=== PATIENT | male | born 1940 | race Caucasian/White ===

== ENCOUNTER 2016-05-14 16:49 | Inpatient (IN) | payer OTHER ==
[~2016-05-14] VITALS: Ht 185.4 cm; Wt 80.3 kg
--- NOTE | ~2016-05-14 | P ---
[facility] [place] [address] PROCEDURE REPORT Name: CLEO ANGEL Room #: 449-I [facility] IN M.R.#: [id number] Admission: 05/14/16 Attend Phys: Roberto Forde MD Discharge: Date of : 42 Report #: [id number] THIS REPORT FOR: //name// CC: Cain Palencia DATE OF SERVICE: 05/15/2016 PROCEDURE: Fiberoptic bronchoscopy with microscopic-protected specimen brush of the right upper lobe, sent for quantitative cultures and bronchial lavage in the right lower lobe, sent for microbiologic and cytologic tests. INDICATIONS: Diffuse bronchiectasis with multiple nodular infiltrates, failing outpatient treatment with Levaquin. ASA classification class II. PROCEDURE NOTATION: After discussing risks and benefits of the planned procedure with the patient, he desired to proceed. After obtaining informed consent, he was brought to the ICU room 248, where he was placed on continuous cardiopulmonary monitoring and supplemental oxygen. He was then given 4% lidocaine nebulized to anesthetize the upper respiratory tract. Once accomplished, he was given conscious sedation, a total of 5 mg of Versed and 25 mcg of fentanyl were titrated during the procedure to provide adequate sedation. Please see nursing sedation log for more details. Once accomplished, the bronchoscope was passed through an oral biteblock until the vocal cords were visualized. Lidocaine 1% was instilled in the vocal cords to provide topical anesthesia. The vocal cords moved appropriately both before and after procedure. The bronchoscope was then passed in the trachea and 1% lidocaine was instilled in the tracheobronchial tree bilaterally to provide topical anesthesia. Once complete, airways were surveyed. FINDINGS: Mainstem, lobar, segmental and subsegmental bronchi were explored and appeared patent, with no significant disease. There was diffuse bronchiectasis noted with dilatation of the airways and there was extensive thick villatoro secretions noted throughout the airways. A protected specimen brush was obtained in the right upper lobe and sent for quantitative cultures. Once this was completed, bronchial lavage was performed in the right lower lobe and sent for microbiologic and cytologic testing. The patient tolerated well. No noted complications. IMPRESSION: Diffuse nodular infiltrate, severe bronchiectasis, status post bronchoscopy with bronchoalveolar lavage and microscopic brush as outlined above. [address] [address] PROCEDURE REPORT Name: CLEO ANGEL Room #: 449-I [facility] IN M.R.#: [id number] Admission: 05/14/16 Attend Phys: Roberto Forde MD Discharge: Date of : 42 Report #: [id number] PLAN: Await microbiologic and cytologic tests, antimicrobials per infectious disease and add percussive vest to current therapy for airway clearance. <ELECTRONICALLY SIGNED> By: Roberto Forde MD 05/19/16 1508 1212 1346 Roberto Forde MD /nt
--- NOTE | ~2016-05-14 | H ---
[facility] [place] [address] HISTORY AND PHYSICAL Name: CLEO ANGEL Room #: 449-I ADM IN M.R.#: [id number] Admission: 05/14/16 Attend Phys: Roberto Forde MD Discharge: Date of : 42 Report #: [id number] THIS REPORT FOR: //name// CC: LANDY Forde DATE OF SERVICE: 05/14/2016 CHIEF COMPLAINT: Cough and shortness of breath. HISTORY OF PRESENT ILLNESS: The patient is a pleasant 76-year-old male with a past pulmonary history significant for tobacco abuse, quitting over 20 years ago, underlying bronchiectasis and COPD, was referred to our office by Dr. Ramón Díaz for further evaluation of the above complaints. He had been having several symptoms of productive cough, increased yellow sputum over the last few months. No fevers, chills, or sweats. There has been some ongoing weight loss and overall general malaise and increasing dyspnea and intolerance to any activity. Recently had been placed on a course of Levaquin with some change in sputum color; however, after completing course of Levaquin had an increased sputum production. There has been no chest pain, no hemoptysis, remains on some low dose systemic steroids and noted some improvement with use of nebulized treatments. Cough is now productive of voluminous amounts of yellow sputum. 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 No noted mold in his home. No recent travel. No prior history of tuberculosis or exposures. ALLERGIES: None known. PAST MEDICAL HISTORY: 1. History of COPD. 2. Cervical radiculopathy. 3. Bronchiectasis, extrapulmonary nodules. 4. History of hypertension. PAST SURGICAL HISTORY: Includes tonsillectomy and adenoidectomy as a child. CURRENT MEDICATIONS: 1. Prednisone 5 mg daily. 2. ProAir p.r.n. 3. Symbicort twice daily. 4. DuoNeb daily. SOCIAL HISTORY: The patient is an ex-smoker, quitting about 20 years ago. No significant alcohol consumption at this time. [facility] [address] [place] [address] HISTORY AND PHYSICAL Name: CLEO ANGEL Room #: 449-I [facility] IN ..#: [id number] Admission: 05/14/16 Attend Phys: Roberto Forde MD Discharge: Date of : 42 Report #: [id number] FAMILY HISTORY: Significant for father at 50 from renal failure. Mother at 95, multiple early comorbidities. REVIEW OF SYSTEMS: CONSTITUTIONAL: No fevers, chills, or sweats. ENT: No upper respiratory congestion, rhinorrhea, or dysphagia. CARDIOVASCULAR: No chest pains or palpitations. GASTROINTESTINAL: No nausea, vomiting, diarrhea, constipation, or abdominal pain. GENITOURINARY: No dysuria, no frequency. INTEGUMENT: Denies any rash. MUSCULOSKELETAL: No joint pains or swelling and generally has a 25-pound weight loss. PHYSICAL EXAMINATION: VITAL SIGNS: Temperature 97.9, pulse 90, respiratory rate of 18, blood pressure 140/72, oxygen saturation 92% on 2 liters, saturates very quickly on ambulation requiring 5 liters nasal cannula. GENERAL: This is a thin elderly male, in no distress. HEENT: Clear oropharynx. No dental caries. Mallampati 1 airway. NECK: Supple, no lymphadenopathy. LUNGS: Diminished with prolonged expiratory phase, diffuse inspiratory and expiratory rhonchi heard throughout. CARDIOVASCULAR: Heart was regular. No murmurs noted. ABDOMEN: Soft, nontender, no masses. EXTREMITIES: Warm, 2+ pulses, no edema. INTEGUMENT: Without rash. LABORATORY DATA: CT scan of the chest done one week ago revealed diffuse worsening left-sided basilar nodules with some improvement in right basilar nodules, diffuse severe bronchiectasis, right greater than left, more lower lobe predominant also noted, diffuse nodular infiltrates also appreciated. IMPRESSION: 1. Acute on chronic hypoxemic respiratory failure with worsening hypoxemic respiratory failure, likely due to respiratory infection, favor admission for further workup and management if the patient becomes acutely severely decompensated. 2. Diffuse nodular pulmonary infiltrates consistent with persistent chronic infectious pneumonia with his bronchiectasis organisms such as methicillin-resistant Staph aureus and Pseudomonas as well as other atypical pathogens including AFB pathogens should be considered and evaluated for. They were sputum for cultures, bronchoscopy in a.m., hold antibiotics until after bronchoscopy complete. We will ask infectious disease to assist with antibiotic management and culture evaluations. [address] [address] HISTORY AND PHYSICAL Name: CLEO ANGEL Room #: 449-I ADM IN M.R.#: [id number] Admission: 05/14/16 Attend Phys: Roberto Forde MD Discharge: Date of : 42 Report #: [id number] 3. Chronic obstructive pulmonary disease with acute exacerbation. We will add low dose systemic steroids and continue with DuoNebs q. 4 hours, add a flutter valve for airway clearance. 4. Severe diffuse bronchiectasis, lower lobe predominant, unclear underlying etiology. 5. History of hypertension. PLAN: As outlined above. Discussed with the patient and daughter by phone, they understand and agreed to proceed with current plan. <ELECTRONICALLY SIGNED> By: Roberto Forde MD 05/19/16 1508 1847 1918 Roberto Forde MD /nt
--- NOTE | ~2016-05-14 | HC ---
[facility] [place] [address] CONSULTATION Name: CLEO ANGEL Room #: 449-I ADM IN M.R.#: [id number] Admission: 05/14/16 Attend Phys: Roberto Forde MD Discharge: Date of : 42 Report #: [id number] THIS REPORT FOR: //name// CC: Baldo Forde REASON FOR CONSULTATION: I was asked to evaluate concerning pneumonia. HISTORY OF PRESENT ILLNESS: The patient is a 76-year-old with progressive symptom complex of shortness of breath, dyspnea on exertion, cough with purulent sputum production. He has noticed this over the last 2 months. He has had one round of oral antibiotics including Levaquin, placed on prednisone and has shown minimal improvement, although his sputum has lightened up significantly. the last 2 weeks, he has been placed on oxygen and is now on 2 liters of oxygen per nasal cannula. He denies any fever or chills, although he has had occasional night sweat. He has had no hemoptysis. He denies any pleuritic chest pain. He has lost 30 pounds of weight. No nausea, vomiting, or diarrhea. No history of aspiration. Denies HIV risk factors. 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 No tuberculosis exposure. He is a past smoker. ALLERGIES: None. MEDICATIONS: Included 5 mg of prednisone, Symbicort, ProAir, DuoNeb and oxygen at 2 liters per nasal cannula. PAST MEDICAL HISTORY: He has had previous pneumonia several years ago, cervical radiculopathy, hypertension, fibula fracture, partial left footdrop, and elevated PSA. FAMILY HISTORY: Noncontributory. SOCIAL HISTORY: As noted above with no additions. REVIEW OF SYSTEMS: In addition to the above, no rashes adenopathy, dysuria, or frequency. PHYSICAL EXAMINATION: VITAL SIGNS: Afebrile, hemodynamically stable. GENERAL: He is alert, cooperative, and pleasant, in no acute distress, is sitting up in his chair on 2 liters of oxygen per nasal cannula. SKIN: Unremarkable. LYMPH: Unremarkable. No peripheral edema. HEENT: Unremarkable. NECK: Supple. LUNGS: Decreased breath sounds bilaterally with no consolidation. [facility] [address] [place] [address] CONSULTATION Name: CLEO ANGEL Room #: 449-I ADM IN [facility].#: [id number] Admission: 05/14/16 Attend Phys: Roberto Forde MD Discharge: Date of : 42 Report #: [id number] HEART: Regular without murmur. ABDOMEN: Soft, nontender, no hepatosplenomegaly or mass. LABORATORY STUDIES: CT scan of the chest was performed in the outpatient clinic. I have not seen the results yet. By report, diffuse left side basilar nodules with diffuse severe bronchiectasis, right greater than left and diffuse nodular infiltrates. Sodium 136, potassium 3.9, and creatinine 1.1. Liver function test normal. Hemoglobin 12, white count 12.6, and platelet count 316,000. IMPRESSION: A 76-year-old with diffuse bronchiectasis and exacerbation of such along with pulmonary nodules. Concerned about the amount of weight loss and debility that has been fairly rapid in onset. We would recommend bronchoscopy to screen for not only bacteria, but also AFB and fungal infections. Also, screen for underlying cancer. After bronchoscopy, we will begin antibiotic therapy and adjust from there. <ELECTRONICALLY SIGNED> By: Cain Isabel MD 05/18/16 1129 1041 1132 Cain Isabel MD /nt
--- NOTE | ~2016-05-14 | HC ---
[facility] [place] [address] CONSULTATION Name: CLEO ANGEL Room #: 449-I ADM IN M.R.#: [id number] Admission: 05/14/16 Attend Phys: Roberto Forde MD Discharge: Date of : 42 Report #: [id number] THIS REPORT FOR: //name// CC: Baldo Forde DATE OF SERVICE: 05/15/2016 LOCATION: The patient is in room 449. REFERRING PHYSICIAN: Roberto Forde MD HISTORY OF PRESENT ILLNESS: This 76-year-old white male is admitted by Dr. Forde because of worsening respiratory failure, dyspnea, sputum production, and need for oxygen. The patient has a past history of COPD and bronchiectasis, was seen in my office on 05/05/2016 after having finished a week of Levaquin and increased prednisone when he continued he show worsening hypoxia with O2 sats dropping 85% on room air when he would walk. He was set up for oxygen at home, which he has been wearing, but his condition continued to worsen. He has been coughing up large amounts of sputum and getting more short of breath. I had referred him to Dr. 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 PAST MEDICAL HISTORY: Elevated PSA without biopsy per patient request, previous pneumonia, cervical radiculopathy from degenerative disk disease, hypertension, fractured right fibula, partial left footdrop, questionable pulmonary nodules and tonsillectomy. MEDICATIONS ON ADMISSION: Oxygen at 3 liters, prednisone 5 mg daily, ProAir 2 puffs q.i.d., Symbicort 160/4.5 two puffs b.i.d. and DuoNeb solution via nebulizer q.i.d. ALLERGIES: None. SOCIAL HISTORY: The patient lives on a farm. 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 He has children out of town, but he does not want to move to their city. REVIEW OF SYSTEMS: He denies loss of appetite, weight loss, fever, chills, sweats, hemoptysis or dysuria. PHYSICAL EXAMINATION: GENERAL: Pleasant, slightly cachectic appearing white male who recognized me immediately. VITAL SIGNS: BP 90/42, pulse 74, respirations 18, temperature afebrile. [facility] [address] [place] [address] CONSULTATION Name: CLEO ANGEL Room #: 449-I [facility] IN M.R.#: [id number] Admission: 05/14/16 Attend Phys: Roberto Forde MD Discharge: Date of : 42 Report #: [id number] HEAD: No rash or trauma. EARS, NOSE AND THROAT: No thrush or oral lesions. EYES: No icterus. NECK: Supple. LUNGS: Cough is bronchitic. Lungs reveal diffuse rhonchi and soft wheezes. HEART: Rhythm regular, without gallop. ABDOMEN: Soft, without masses or organomegaly. EXTREMITIES: Legs, no edema or cyanosis. NEUROLOGIC: He is alert and well oriented. Ambulates independently. LABORATORY DATA: Hemoglobin 12 grams, white count 12,600. Electrolytes normal. BUN 18, creatinine 1.1, estimated GFR 65, blood sugar 140. Liver enzymes normal. Albumin low at 2.5, protein slightly high at 8.3. Recent CAT scan showed bronchiectasis and diffuse basilar nodules. Sputum sample was not adequate for sending yet. IMPRESSION: 1. Hypoxic respiratory failure secondary to bronchiectasis, chronic obstructive pulmonary disease, and possible infection. 2. Cervical radiculopathy. 3. History of hypertension. 4. History of elevated PSA. 5. Moderate protein-calorie malnutrition. 6. Elevated serum proteins, probably secondary to infection. RECOMMENDATIONS: Dr. Forde has started an aggressive pulmonary program including bronchoscopy for adequate cultures and Infectious Disease consultation. Would encourage adequate diet, possibly Ensure supplement. Thank you for the opportunity to see this patient in consultation. <ELECTRONICALLY SIGNED> By: Baldo Díaz DO 05/18/16 0739 0733 0935 Baldo Díaz DO /nt
--- NOTE | ~2016-05-14 | CNG ---
[facility] [place] [address] CYTO-NONGYN REPORT PROCEDURE Name: BUTCH BRANDON Room #: 449-I ADM IN M.R.#: [id number] Admission: 05/14/16 Date of : 44 Discharge: Report #: [id number] Path Case #: [id number] CYTOPATHOLOGY REPORT COLLECTION DATE: 05/15/2016 RECEIVED DATE: 05/18/2016 SUBMITTING PHYS: Dr. Cain Isabel OTHER PHYS: Dr. Roberto Díaz CLINICAL HISTORY: Shortness of air, COPD, Pneumonia. SPECIMEN(S) RECEIVED: A.Needle aspiration, transbronchial B.Bronchoalveolar lavage, NOS * * * * * * * * * * * * FINAL DIAGNOSIS: A. Needle aspiration, transbronchial: NEGATIVE FOR MALIGNANT CELLS. Numerous acute inflammatory cells present. B. Bronchoalveolar lavage, NOS: NEGATIVE FOR MALIGNANT CELLS. Numerous acute inflammatory cells, few bronchial epithelial cells, and few pulmonary macrophages present. Properly controlled silver stain is negative for fungal elements and negative for Pneumocystis organisms. PATHOLOGIST: Indigo Varma M.D. REPORT ELECTRONICALLY SIGNED BY: Indigo Varma M.D. DATE/TIME: 05/19/2016 13:00 * * * * * * * * * * * * GROSS PATHOLOGY: A. Needle aspiration, transbronchial: The specimen is labeled "Butch Brandon" and consists of a brush tip in fixative. One ThinPrep slide was prepared from this material. B. Bronchoalveolar lavage, NOS: The specimen is submitted fixed, labeled "Butch Brandon". Received by the Cytology Department is four mL of cloudy yellow fluid. One ThinPrep slide was prepared for pap stain. One ThinPrep slide was prepared for silver stain. (clt 05.18.2016) MUSIC WRITER(S): REYNOLD Holman(ASCP) INITIAL CPT CODE(S): A; 67177 B; 92587, 33063 Professional services performed by [facility] at [facility] [address] [place] [address] CYTO-NONGYN REPORT PROCEDURE Name: STANLEYBUTCH Room #: 449-I ADM IN M.R.#: [id number] Admission: 05/14/16 Date of : 42 Discharge: Report #: [id number] Path Case #: [id number] , [place] [address] Technical services performed by [facility] at [address] [place] [address], [address], [place] [address]. [address] [place] [address] PHONE: [phone] DIRECTOR: Masoud Guillen M.D. * * * END OF REPORT * * *
[2016-05-14] MEDS ORDERED: PREDNISONE 5 MG5 M1 PO (18:46)
[2016-05-14 18:55] VITALS: BP 106/53
[2016-05-14 20:19] LABS: HEMATOCRIT 37.3 % (42.0-52.0); MCH 27.8 pg (26.0-34.0); MCHC 32.3 % (28.0-37.0); MCV 86.2 fL (80.0-100.0); RBC 4.32 mil/uL (4.50-6.00); RDW 14.5 % (10.5-14.5); WBC 12.6 thou/uL (4.0-11.0)
[2016-05-14 20:32] LABS: ALBUMIN 2.5 g/dL (3.4-5.0); CALCIUM 8.9 mg/dL (8.5-10.1); CREATININE 1.1 mg/dL (0.6-1.3); POTASSIUM 3.9 mmol/L (3.5-5.1); TOTAL BILIRUBIN 0.3 mg/dL (<0.1-1.0); TOTAL PROTEIN 8.3 g/dL (6.4-8.2)
[2016-05-15 04:00] VITALS: BP 98/42
[2016-05-15 07:29] VITALS: BP 96/52
[2016-05-15 12:50] VITALS: BP 94/43
[2016-05-15 15:16] VITALS: BP 99/49
[2016-05-15 15:26] LABS: ESR (SEDRATE) 132 mm/hr (0-20)
[2016-05-15 19:03] VITALS: BP 113/53
[2016-05-16 02:53] VITALS: BP 112/62
[2016-05-16 04:11] LABS: IgA 636 mg/dL (61-437); IgG 1749 mg/dL (700-1600); IgM 60 mg/dL (15-143)
[2016-05-16 05:13] LABS: HIV ANTIBODY Non Reactive (Non Reactive)
[2016-05-16 07:51] VITALS: BP 112/64
[2016-05-16 11:31] VITALS: BP 146/71
[2016-05-16 16:20] VITALS: BP 126/62
[2016-05-16 19:07] VITALS: BP 117/64
[2016-05-17 05:07] VITALS: BP 113/62
[2016-05-17 07:51] VITALS: BP 114/54
[2016-05-17 11:49] VITALS: BP 130/69
[2016-05-17 15:54] VITALS: BP 133/73
[2016-05-17 19:15] VITALS: BP 134/66
[2016-05-18 03:37] VITALS: BP 116/67
[2016-05-18 08:00] VITALS: BP 122/69
[2016-05-18 11:30] VITALS: BP 115/65
[2016-05-18 14:52] LABS: NIL (NEGATIVE) CONTROL SPOT CT 0; PANEL A SPOT CT 0; PANEL B SPOT CT 1; POSITIVE CONTROL SPOT COUNT > 20; T-SPOT.TB Negative
[2016-05-18 16:00] VITALS: BP 115/64
[2016-05-18 18:06] LABS: HISTOPLASMA-IMMUNODIFF Negative (Neg:<1:1)
[2016-05-18 19:15] VITALS: BP 113/64
[2016-05-19 05:07] VITALS: BP 116/66
[2016-05-19 07:26] VITALS: BP 128/87
[2016-05-19 11:49] VITALS: BP 129/79
[2016-05-19 12:27] VITALS: BP 129/79
[2016-05-19 16:08] LABS: ASPERGILLUS FLAVUS-ID Negative (Neg:<1:1); ASPERGILLUS FUMIGATUS-ID Negative (Neg:<1:1); ASPERGILLUS NIGER-ID Negative (Neg:<1:1)
[2016-05-27 18:11] LABS: BLASTOMYCES-IMMUNODIFF Negative (Neg:<1:1)
[2016-05-30 19:06] LABS: COCCIDIOIDES-IMMUNODIFF Negative (Neg:<1:1)
== END 2016-05-19 15:33 | disposition home or self-care (01) | DRG 177 ==
LOC: 4W 16:49
PROVIDERS: Internal Medicine Pulmonary Disease; Specialist
PROC: 0BB48ZX Excision of Right Upper Lobe Bronchus, Via Natural or Artificial Opening Endoscopic, Diagnostic (ICD-10-PCS; principal; 2016-05-15)
PROC: 0B968ZX Drainage of Right Lower Lobe Bronchus, Via Natural or Artificial Opening Endoscopic, Diagnostic (ICD-10-PCS; principal; 2016-05-15)
DX: J15.1 Pneumonia due to Pseudomonas (principal); J96.21 Acute and chronic respiratory failure with hypoxia; E44.0 Moderate protein-calorie malnutrition; J44.1 Chronic obstructive pulmonary disease with (acute) exacerbation; J47.1 Bronchiectasis with (acute) exacerbation; R33.9 Retention of urine, unspecified; M50.10 Cervical disc disorder with radiculopathy, unspecified cervical region; I10 Essential (primary) hypertension; Z87.81 Personal history of (healed) traumatic fracture; Z98.890 Other specified postprocedural states; Z68.23 Body mass index [BMI] 23.0-23.9, adult
CPT/HCPCS: 10045

== ENCOUNTER → 2016-08-05 | Outpatient (CLI) | payer OTHER ==
[~2016-08-05] MED LIST: PREDNISONE 5 MG5 M1 PO
== END ==
LOC: RAD 09:37
DX: J47.9 Bronchiectasis, uncomplicated (principal)

== ENCOUNTER → 2017-11-18 | Outpatient (CLI) | payer OTHER | LOC: RAD 10:25 | DX: J47.9 Bronchiectasis, uncomplicated (principal); I10 Essential (primary) hypertension ==

== ENCOUNTER 2018-01-14 23:14 | Inpatient (IN) | payer OTHER ==
[~2018-01-14] VITALS: Ht 185.4 cm; Wt 70.3 kg
--- NOTE | ~2018-01-14 | EKG ---
[address] [address] ELECTROCARDIOGRAM REPORT Name: CLEO ANGEL Room #: 352-P [facility] IN M.R.#: [id number] Admission: 01/15/18 Attend Phys: Baldo Díaz DO Discharge: Date of : 42 Report #: [id number] THIS REPORT FOR: //name// [facility] ED Test Date: 2018-01-14 Test Time: 23:50:03 Pat Name: CLEO ANGEL Department: Room: Gender: M [employer] Director: TK : 1940 Requested By: Cindy Moya Order Number: [id number] MD: Luc Catherine Measurements Intervals [place] Rate: 104 P: 84 MO: 160 QRS: 66 QRSD: 96 T: 60 QT: 317 QTc: 417 Interpretive Statements Sinus tachycardia No previous ECG available for comparison Electronically Signed On 01-17-2018 17:24:58 CDT by Luc Catherine [email or web address] <ELECTRONICALLY SIGNED> By: Luc Catherine MD 01/17/18 1724 2350 2350 Luc Catherine MD /MELODIE
--- NOTE | ~2018-01-14 | D ---
[facility] [place] [address] DISCHARGE SUMMARY Name: CLEO ANGEL Room #: 352-P [facility] IN ..#: [id number] Admission: 01/15/18 Attend Phys: Baldo Díaz DO Discharge: 01/20/18 Date of : 42 Report #: [id number] THIS REPORT FOR: //name// CC: Baldo Lee MD DATE OF SERVICE: 01/20/2018 This 77-year-old white male was admitted with shortness of breath, coughing and wheezing, progressive over several days at home. His past history include chronic obstructive lung disease, oxygen dependent; bronchiectasis; hypertension; previous pulmonary nodules; cervical degenerative disk disease with radiculopathy. 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 The patient had lost at least 20 pounds. In March of last year, he weighed 176. HOSPITAL COURSE: Initial physical revealed a dyspneic, tachypneic white male, using pursed lip breathing. Cardiac exam revealed rhythm was initially regular then became irregular. His lungs revealed scattered expiratory wheezes. The abdomen was soft and nontender without masses. Extremities had no edema or cyanosis. He was wearing 6 liters of oxygen as at home. Initial EKG showed atrial fibrillation. Echocardiogram revealed an LVEF ____% mild diastolic dysfunction and pulmonary artery pressure elevated at 65. No significant valvular disease was seen. Initial chest x-ray showed consolidating pneumonia in the right lower lung with small right pleural effusion. The patient was seen in consult by Dr. Lozoya of Pulmonary and Dr. Lee of Cardiology. He was placed on full dose Lovenox and started on Cardizem for rate control. He received IV steroids and IV antibiotics. CAT scan of the chest, abdomen and pelvis because of chronic weight loss revealed enlarged prostate with mass effect, diffuse emphysema, mass-like infiltrates in bilateral lung bases and right middle lobe with extensive bronchiectasis throughout both lung tellez. CAT scan was compared to a CAT scan from 2017 with findings that the nodular opacities within the right lung base had increased and the nodular opacity in the left lower lobe was new. Sputum culture grew out no pathogens. Urine antigens for legionella and pneumococcus were negative. Multiple blood studies were obtained. His final hemoglobin is 10.7, white count 15,000. Sodium low at 130, potassium 4.7, CO2 39, BUN 26, creatinine 0.9, blood sugar 90, calcium 8.9, albumin 2.3. PSA was elevated at 13. Thyroid function was normal. The patient did improve somewhat, but still required 6 liters of oxygen, had continued wheezing. He was breathless when talking, but was able to ambulate slowly in the halls. Bowel and bladder function was stable. On 01/20/2018, he was clinically stable for transfer to [facility]p at [facility] on Trelegy one puff daily; DuoNeb treatments q.i.d. and p.r.n. at night; oxygen 6 liters with taper if possible; prednisone 40 mg daily for 3 days, then [address] [address] DISCHARGE SUMMARY Name: STANLEYCLEO Room #: 352-P [facility] IN [facility].#: [id number] Admission: 01/15/18 Attend Phys: Baldo Díaz, Discharge: 01/20/18 Date of : 44 Report #: [id number] daily for 3 days, then 10 mg daily; cefuroxime 500 mg b.i.d. for another 5 days; Mucinex 1200 mg b.i.d.; Cardizem CD 180 mg daily; Flonase 1 spray each nostril b.i.d.; Tylenol grains 10 q. 4 hours p.r.n. pain and a regular diet. He remained in atrial fibrillation with rate controlled. Concern for malignancy is still present, possibly in the lung. Plan is to repeat his CAT scan in 6 weeks. Overall, prognosis is very guarded. He does have a living will and states he requests DNR status and no heroics or feeding tube or life support measures. FINAL DIAGNOSES: 1. Community-acquired pneumonia. 2. Severe protein-calorie malnutrition with weight loss and cachexia. 3. Chronic obstructive pulmonary disease with diffuse bronchiectasis. 4. Atrial fibrillation. 5. Hypertension. 6. History of cervical degenerative disk disease. 7. Hyponatremia. 8. Chronic anemia. <ELECTRONICALLY SIGNED> By: Baldo Díaz DO 01/29/18 0713 0903 1137 Baldo Díaz DO /nt
--- NOTE | ~2018-01-14 | 2DMMODE ---
[facility] [address] [place] [address] 2 D/M-MODE ECHOCARDIOGRAM Name: CLEO ANGEL Room #: 352-P [facility] IN ..#: [id number] Admission: 01/15/18 Attend Phys: Bella Dunn Discharge: Date of : 44 Date of Service: 01/15/18 [facility] Report #: [id number] THIS REPORT FOR: //name// APPROVED REPORT Study performed: 01/15/2018 08:49:10 EXAM: Comprehensive 2D, Doppler, and color-flow Echocardiogram Patient Location: Bedside Room #: [facility] Status: routine BSA: 1.93 HR: 71 bpm BP: 116/68 mmHg Other Information Study Quality: Adequate Technically limited study due to lung disease, no parasternal short axis images due to low window. Indications COPD Hypertension/HDD SOA 2D Dimensions RVDd: 41.75 mm IVSd: 9.79 (7-11mm) LVOT Diam: 20.97 (18-24mm) LVDd: 42.64 mm PWd: 8.52 (7-11mm) LVDs: 26.91 (25-40mm) Aortic Root: 31.36 mm IVC: 23.00 mm Volumes Left Atrial Volume (Systole) Single Plane 4CH: 29.35 mL Single Plane 2CH: 25.65 mL LA ESV Index: 17.00 mL/m2 Aortic Valve AoV Peak Cas.: 1.03 m/s AO Peak Gr.: 4.25 mmHg LVOT Max P.23 mmHg LVOT Max V: 1.03 m/s SAMEER Vmax: 3.44 cm2 [facility] [address] [place] [address] 2 D/M-MODE ECHOCARDIOGRAM Name: MEGANRadhaCLEO Cris Room #: 352-P [facility] IN [facility]#: [id number] Admission: 01/15/18 Attend Phys: Bella Dunn Discharge: Date of : 44 Date of Service: 01/15/18 [facility] Report #: [id number] Mitral Valve E/A Ratio: 0.6 MV Decel. Time: 227.24 ms MV E Max Cas.: 0.64 m/s MV A Cas.: 1.09 m/s MV PHT: 65.90 ms IVRT: 83.04 ms Pulmonary Valve PV Peak Cas.: 1.12 m/s PV Peak Gr.: 4.98 mmHg Tricuspid Valve TR Peak Cas.: 3.70 m/s RAP Estimate: 10.00 mmHg TR Peak Gr.: 54.68 mmHg PA Pressure: 65.00 mmHg Left Ventricle The left ventricle is normal size. There is normal left ventricular wall thickness. The left ventricular systolic function is normal. The left ventricular ejection fraction is within the normal range. LVEF is 60-65%. Mild diastolic dysfunction is present (impaired relaxation pattern). Right Ventricle Right ventricle is at the upper limits of normal. The right ventricular systolic function is normal. Atria The left atrium size is normal. The right atrium size is normal. Aortic Valve The aortic valve is normal in structure. No aortic regurgitation is present. There is no aortic valvular stenosis. Mitral Valve The mitral valve is normal in structure. Trace mitral regurgitation. No evidence of mitral valve stenosis. Tricuspid Valve The tricuspid valve is normal in structure. Mild tricuspid regurgitation. PAP is estimated at 65 mmHg. Pulmonic Valve Pulmonic valve is not well visualized. [facility] [place] [address] 2 D/M-MODE ECHOCARDIOGRAM Name: CLEO ANGEL Room #: 352-P ADM IN .R.#: [id number] Admission: 01/15/18 Attend Phys: Bella Dunn Discharge: Date of : 44 Date of Service: 01/15/18 [facility] Report #: [id number] Great Vessels The aortic root is normal in size. IVC is dilated and collapses >50% with inspiration. Pericardium There is no pericardial effusion. <Conclusion> The left ventricle is normal size. LVEF is 60-65%. Mild diastolic dysfunction is present (impaired relaxation pattern). Right ventricle is at the upper limits of normal. The left atrium size is normal. The aortic valve is normal in structure. Trace mitral regurgitation. Mild tricuspid regurgitation. PAP is estimated at 65 mmHg. The aortic root is normal in size. There is no pericardial effusion. <ELECTRONICALLY SIGNED> By: Francisco Bennett MD, FACC 01/15/18 1037 1037 1037 Francisco Bennett MD, FACC /INF
--- NOTE | ~2018-01-14 | EKG ---
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
--- NOTE | ~2018-01-14 | H ---
[facility] [place] [address] HISTORY AND PHYSICAL Name: CLEO ANGEL Room #: 352-P ADM IN M.R.#: [id number] Admission: 01/15/18 Attend Phys: Baldo Díaz DO Discharge: Date of : 44 Report #: [id number] THIS REPORT FOR: //name// CC: Baldo Díaz PRIMARY CARE PHYSICIAN: Baldo Díaz DO CHIEF COMPLAINT: Shortness of breath. HISTORY OF PRESENT ILLNESS: This is a pleasant male with long history of COPD, bronchiectasis, oxygen dependent. It is noted that his oxygen concentrator has had difficulties. The patient has noted increasing shortness of breath with coughing and wheezing. This has been most evident over the last 1-2 days. There have been no fevers or chills, headache, visual changes, hearing changes, sore throat, epistaxis, chest pain, chest pressure, palpitations, near syncope, abdominal pain, nausea, vomiting, diarrhea, constipation, dysuria, joint swelling, skin rash, depression, anxiety or confusion. The patient came in the emergency department and required BiPAP. PAST MEDICAL HISTORY: 1. Tonsillectomy. 2. COPD. 3. Cervical radiculopathy. 4. Bronchiectasis. 5. Hypertension. 6. History of pulmonary nodules. SOCIAL HISTORY: The patient quit smoking 20 years ago. No significant alcohol consumption. MEDICATIONS: DuoNeb. FAMILY HISTORY: Father of renal failure, mother multiple medical issues. PHYSICAL EXAMINATION: GENERAL: Pleasant male with mild respiratory distress. VITAL SIGNS: Temperature is 36.3, heart rate 85, respiratory rate 24, blood pressure 116/68, oxygen saturation 98%. HEENT: Conjunctivae pink. Nares clear. Pharynx clear. NECK: Supple, no lymphadenopathy. LUNGS: With moderate bilateral wheezing, few rhonchi. HEART: Regular rhythm. S1, S2. ABDOMEN: Soft, nontender, nondistended. EXTREMITIES: No edema. Good peripheral pulses. No joint swelling. SKIN: No skin rash. PSYCHIATRY: Affect is normal. [address] [address] HISTORY AND PHYSICAL Name: MEGANRadhaCLEO Room #: 352-P [facility] IN ..#: [id number] Admission: 01/15/18 Attend Phys: Baldo Díaz DO Discharge: Date of : 44 Report #: [id number] DATA: White blood cell count 22.7, hemoglobin 11.7, 86% neutrophils, platelet count 288. PT, PTT normal. BUN 30, creatinine 1.5, bicarbonate 37. Troponin was normal. TSH 1.85. Arterial blood gas pH 7.419, pCO2 of 54, pO2 of 99.8 on 5 L of nasal cannula. IMPRESSION: 1. Acute shortness of breath, likely acute exacerbation of chronic obstructive pulmonary disease with underlying bronchiectasis. No chest radiograph noted at this time. No results at this time. Reportedly from the emergency department, a chest radiograph showed no acute infiltrates. 2. Respiratory alkalosis, chronic. PLAN: Bronchodilators, antibiotics, glucocorticoids, echocardiogram. DVT prophylaxis, oxygen as needed. Consult pulmonary medicine. <ELECTRONICALLY SIGNED> By: Devon Hurley MD 01/16/18 0719 0609 0638 Devon Hurley MD /nt
--- NOTE | ~2018-01-14 | HC ---
[facility] [place] [address] CONSULTATION Name: CLEO ANGEL Room #: 352-P [facility] IN M.R.#: [id number] Admission: 01/15/18 Attend Phys: Baldo Díaz DO Discharge: Date of : 44 Report #: [id number] THIS REPORT FOR: //name// CC: Baldo Díaz DATE OF SERVICE: 01/15/2018 PRIMARY CARE PHYSICIAN: Dr. Baldo Díaz. REFERRING PHYSICIAN: Dr. Devon Hurley. REASON FOR REFERRAL: Dyspnea. HISTORY OF PRESENT ILLNESS: The patient is a 77-year-old white male with COPD who presented to Emergency Room with progressive dyspnea. A pulmonary consultation was requested. The patient is normally followed longitudinally by Dr. Forde in the office. His baseline FEV1 measured 0.72 or 22% predicted, FVC measuring 1.89 or 45% predicted, FEV1/FVC ratio of 38%. The study was done in 11/2016. He was last seen in the office in 11/2017. He is normally on ProAir, DuoNeb q.i.d. and p.r.n., Actifed. The patient also has been on oxygen for the past 2 years. He was in his usual state of health until about several days ago he noticed that his oxygen concentrator started to malfunction. He thinks that he was not getting any oxygen. He is normally on 4 liters of O2. For the past few days he has noticed increasing dyspnea, bronchospasm. Otherwise, he denies any recent febrile illness, sore throat, productive cough, hemoptysis. He denies any recent nausea, vomiting, diarrhea. PAST MEDICAL HISTORY: Notable for allergic rhinitis, bronchiectasis by CT chest, status post bronchoscopy in 2017, cervical radiculopathy, COPD, very severe impairment of baseline FEV1 of 0.72 liters or 22% predicted, chronic O2 at 4 liters, foot drop, fibular fracture, hypotension, past history of pneumonia, and spondylosis. PAST SURGICAL HISTORY: Include tonsillectomy, adenoidectomy. ALLERGIES: None to medications. SOCIAL HISTORY: The patient had smoked about a pack a day for 20 years, quit in 1979. He denies any alcohol use. [facility] [address] [address] CONSULTATION Name: CLEO ANGEL Room #: 352-P [facility] IN [facility]#: [id number] Admission: 01/15/18 Attend Phys: Baldo Díaz, Discharge: Date of : 44 Report #: [id number] REVIEW OF SYSTEMS: As mentioned above, otherwise 10-point system review negative. The patient has lost approximately 50 pounds over the last few years. He states that his appetite really has not changed. PHYSICAL EXAMINATION: GENERAL: He is awake, alert. He appears moderately dyspneic. VITAL SIGNS: Temperature is 97.6 degrees Fahrenheit, pulse is 70, respiratory rate is 18, blood pressure 111/71 mmHg, saturation 98%. HEENT: Normocephalic, atraumatic. NECK: Supple, without any lymphadenopathy or thyromegaly. CHEST: Breath sounds are decreased bilaterally, mild expiratory wheezes. No rales. CARDIOVASCULAR: Normal S1, S2. There are no murmurs or gallop. There is no JVD, no carotid bruit. Pulses are 2+/4+ bilaterally. ABDOMEN: Soft, nontender, no organomegaly or masses felt. GENITOURINARY: Deferred. RECTAL: Deferred. EXTREMITIES: There is no edema, cyanosis or clubbing. LABORATORY DATA: Chest x-ray shows hyperexpanded lung tellez, increased infiltrates in the right lower lung field, diaphragms are flattened, chronic infiltrates also noted when compared to prior chest x-ray of 2017. Electrolytes: Sodium 134, potassium 4.6, chloride 93, CO2 of 37, BUN is 30, and creatinine is 1.7. WBC 22,700, hemoglobin 11.7, platelets are normal, no evidence of bandemia. Arterial blood gas revealed pH 7.41, pCO2 of 54, pO2 of 99 on 5 liters of O2. IMPRESSION: 1. Exacerbation of chronic obstructive pulmonary disease/bronchiectasis, very severe impairment, baseline FEV1 of 0.72 liters, 22% predicted. 2. Acute on chronic hypercapnic hypoxic respiratory failure. He is normally on 4 liters of O2. 3. Recent weight loss of about 50 pounds over the last few years, suspect this may be related to severe pulmonary impairment, otherwise known as pulmonary cachexia syndrome. 4. Increased right lower lobe infiltrates, possible pneumonia. He has had bronchoscopy in the past. The patient does not have a past history of chronic bacterial colonization. 5. Renal insufficiency, this appears to be acute kidney injury, previous creatinine had been normal. 6. Episodic tachycardia, likely paroxysmal atrial tachycardia due to severe pulmonary impairment and hypoxia. RECOMMENDATION: I would agree with current plans, bronchodilators, corticosteroids, and broad spectrum antibiotics. Dose of the prednisone can be left at 40 mg once a day based on most studies. The patient does have trouble [facility] [address] [place] [address] CONSULTATION Name: CLEO ANGEL Room #: 352-P [facility] IN .R.#: [id number] Admission: 01/15/18 Attend Phys: Baldo Díaz DO Discharge: Date of : 44 Report #: [id number] with paroxysmal tachycardia, suspect paroxysmal atrial tachycardia. We will try to switch albuterol to Xopenex. Continue nebulized ipratropium. DVT and GI prophylaxis will be indicated. With his history of recent weight loss, if the patient has not undergone workup for unexplained weight loss, this will be recommended. This can be done as an outpatient. If workup has been so far negative, it is likely related to severe pulmonary impairment, otherwise known as pulmonary cachexia syndrome. Nutritional supplementation is recommended. Previous studies looking at appetite stimulant has not been highly successful in increasing caloric intake. Nutritional supplements such as Ensure or PulmoCare or [place] instant breakfast will be an option. Thank you for this consultation. <ELECTRONICALLY SIGNED> By: Vahe Lagunas MD 01/16/18 1353 1416 193 Vahe Lagunas MD /nt
[2018-01-14 23:15] VITALS: BP 125/77
[2018-01-14 23:34] LABS: BE(vivo) 8.2 mmol/L (-2 to +3); HCO3 34.2 mmol/L (22.0-26.0); PCO2 54.1 mmHg (35.0-45.0); PO2 99.8 mmHg (80.0-100.0); pH 7.419 (7.360-7.450); sO2 97.5 % (92.0-98.0)
[2018-01-14 23:38] LABS: HEMATOCRIT 35.7 % (42.0-52.0); HEMOGLOBIN 11.7 gm/dL (14.0-18.0); MCH 29.2 pg (26.0-34.0); MCHC 32.7 g/dL (28.0-37.0); MCV 89.2 fL (80.0-100.0); PLATELET COUNT 288 thou/uL (150-400); RDW 13.5 % (10.5-14.5); WBC 22.7 thou/uL (4.0-11.0)
[2018-01-14 23:46] LABS: ANION GAP 4 mmol/L (7-16); BUN 30 mg/dL (7-18); CALCIUM 9.6 mg/dL (8.5-10.1); CHLORIDE 93 mmol/L (98-107); CO2 37 mmol/L (21-32); CREATININE 1.5 mg/dL (0.7-1.3); GLUCOSE 137 mg/dL (74-106); POTASSIUM 4.6 mmol/L (3.5-5.1); SODIUM 134 mmol/L (136-145)
[2018-01-14 23:52] LABS: APTT 25.2 Seconds (24.5-32.8); PROTIME 10.4 Seconds (9.3-11.4)
[2018-01-14 23:54] LABS: TROPONIN-I <0.06 ng/mL (<0.06)
[2018-01-15] VITALS (8 sets, daily range): BP systolic 110–125; BP diastolic 48–71
[2018-01-16 03:47] VITALS: BP 111/62
[2018-01-16 05:50] LABS: CALCIUM 9.2 mg/dL (8.5-10.1); CREATININE 0.8 mg/dL (0.7-1.3); POTASSIUM 4.9 mmol/L (3.5-5.1)
[2018-01-16 07:30] VITALS: BP 100/59
[2018-01-16 11:12] VITALS: BP 125/76
[2018-01-16 15:11] VITALS: BP 101/60
[2018-01-16 19:40] VITALS: BP 121/62
[2018-01-17 05:03] VITALS: BP 100/67
[2018-01-17 07:30] VITALS: BP 103/65
[2018-01-17 07:43] LABS: ALBUMIN 2.3 g/dL (3.4-5.0); ANION GAP < 0 mmol/L (7-16); BUN 24 mg/dL (7-18); CALCIUM 9.3 mg/dL (8.5-10.1); CHLORIDE 95 mmol/L (98-107); CO2 39 mmol/L (21-32); GLUCOSE 117 mg/dL (74-106); POTASSIUM 5.2 mmol/L (3.5-5.1); SGOT 17 U/L (15-37); SGPT 33 U/L (30-65); SODIUM 131 mmol/L (136-145); TOTAL BILIRUBIN 0.2 mg/dL (<0.1-1.0); TOTAL PROTEIN 6.8 g/dL (6.4-8.2)
[2018-01-17 11:23] VITALS: BP 110/59
[2018-01-17 15:37] VITALS: BP 116/69
[2018-01-17 20:00] VITALS: BP 112/71
[2018-01-18 03:40] VITALS: BP 99/60
[2018-01-18 04:38] LABS: CREATININE 0.8 mg/dL (0.7-1.3); POTASSIUM 4.5 mmol/L (3.5-5.1)
[2018-01-18 04:42] LABS: ABSOLUTE NEUTROPHILS 16.3 thou/uL (1.4-8.2); BASOPHILS 0.1 % (0.0-2.0); HEMATOCRIT 33.5 % (42.0-52.0); HEMOGLOBIN 11.1 gm/dL (14.0-18.0); LYMPHOCYTES 4.8 % (24.0-44.0); MCH 29.2 pg (26.0-34.0); MCHC 33.1 g/dL (28.0-37.0); MCV 88.1 fL (80.0-100.0); PLATELET COUNT 246 thou/uL (150-400); POLYS 92.1 % (36.0-66.0); RDW 13.4 % (10.5-14.5); WBC 17.7 thou/uL (4.0-11.0)
[2018-01-18 07:29] VITALS: BP 113/58
[2018-01-18 11:40] VITALS: BP 115/73
[2018-01-18 15:25] VITALS: BP 113/67
[2018-01-18 19:30] VITALS: BP 119/79
[2018-01-19 02:50] VITALS: BP 100/62
[2018-01-19 05:37] LABS: HEMATOCRIT 32.8 % (42.0-52.0); HEMOGLOBIN 10.7 gm/dL (14.0-18.0); MCH 29.1 pg (26.0-34.0); MCHC 32.7 g/dL (28.0-37.0); MCV 88.9 fL (80.0-100.0); RBC 3.69 mil/uL (4.50-6.00); RDW 13.2 % (10.5-14.5); WBC 15.8 thou/uL (4.0-11.0)
[2018-01-19 05:45] LABS: ANION GAP < 0 mmol/L (7-16); BUN 26 mg/dL (7-18); CALCIUM 8.9 mg/dL (8.5-10.1); CHLORIDE 95 mmol/L (98-107); CO2 39 mmol/L (21-32); CREATININE 0.9 mg/dL (0.7-1.3); GLUCOSE 90 mg/dL (74-106); POTASSIUM 4.7 mmol/L (3.5-5.1); SODIUM 130 mmol/L (136-145)
[2018-01-19 07:12] VITALS: BP 110/64
[2018-01-19] MEDS ORDERED: IPRAT-ALBUT 0.5-3 ML INH (09:06)
[2018-01-19] MEDS ORDERED: PREDNISONE 10 M10 MG PO (09:07)
[2018-01-19] MEDS ORDERED: AMBIEN 5 MG TABL5 M1 PO (09:08)
[2018-01-19] MEDS ORDERED: XARELTO20 MG PO (09:08)
[2018-01-19] MEDS ORDERED: APAP650 PO (09:08)
[2018-01-19] MEDS ORDERED: FLONASE 0.05%50 MCG NASAL (09:08)
[2018-01-19] MEDS ORDERED: DILTIAZEM 24HR180 M1 PO (09:08)
[2018-01-19] MEDS ORDERED: ALPRAZOLAM 0.0.25 MG PO (09:08)
[2018-01-19 15:26] VITALS: BP 110/65
[2018-01-19 19:48] VITALS: BP 98/57
[2018-01-20 04:49] VITALS: BP 104/63
[2018-01-20 07:14] VITALS: BP 101/70
[2018-01-20] MEDS ORDERED: PAXIL10 MG (08:32)
[2018-01-20] MEDS ORDERED: TRELEGY ELLIPT1 EACH INH (08:32)
[2018-01-20] MEDS ORDERED: MUCINEX1200 MG PO (08:55)
[2018-01-20] MEDS ORDERED: CEFUROXIME500 MG PO (08:56)
[2018-01-20] MEDS ORDERED: ZANTAC 150MG T150 MG PO (09:03)
== END 2018-01-20 11:53 | DRG 871 ==
LOC: ER 23:14 → EROBS 01-15 01:08 → 3W 01-15 01:08 → ER 01-15 02:27 → 3W 01-15 02:31
PROVIDERS: Emergency Medicine; Internal Medicine; Internal Medicine Pulmonary Disease
DX: A41.9 Sepsis, unspecified organism (principal); J18.9 Pneumonia, unspecified organism; J96.22 Acute and chronic respiratory failure with hypercapnia; J96.21 Acute and chronic respiratory failure with hypoxia; E43 Unspecified severe protein-calorie malnutrition; J44.1 Chronic obstructive pulmonary disease with (acute) exacerbation; E87.1 Hypo-osmolality and hyponatremia; E87.3 Alkalosis; J44.0 Chronic obstructive pulmonary disease with (acute) lower respiratory infection; J44.9 Chronic obstructive pulmonary disease, unspecified; R00.0 Tachycardia, unspecified; I48.91 Unspecified atrial fibrillation; D64.9 Anemia, unspecified; I10 Essential (primary) hypertension; E87.5 Hyperkalemia; N40.0 Benign prostatic hyperplasia without lower urinary tract symptoms; Z87.891 Personal history of nicotine dependence; Z87.81 Personal history of (healed) traumatic fracture; Z68.20 Body mass index [BMI] 20.0-20.9, adult; Z82.3 Family history of stroke; Z84.1 Family history of disorders of kidney and ureter; Z99.81 Dependence on supplemental oxygen; I27.20 Pulmonary hypertension, unspecified
CPT/HCPCS: 10879

== ENCOUNTER → 2018-02-09 | Outpatient (CLI) | payer OTHER ==
[~2018-02-09] MED LIST changes: +ALPRAZOLAM 0.0.25 MG PO; +AMBIEN 5 MG TABL5 M1 PO; +APAP650 PO; +CEFUROXIME500 MG PO; +DILTIAZEM 24HR180 M1 PO; +FLONASE 0.05%50 MCG NASAL; +IPRAT-ALBUT 0.5-3 ML INH; +MUCINEX1200 MG PO; +PAXIL10 MG; +PREDNISONE 10 M10 MG PO; +TRELEGY ELLIPT1 EACH INH; +XARELTO20 MG PO; +ZANTAC 150MG T150 MG PO
== END ==
LOC: RAD 10:36
DX: J43.9 Emphysema, unspecified (principal); J84.10 Pulmonary fibrosis, unspecified